=== PATIENT | female | born 1980 | race Native Hawaiian/Other Pacific Islander ===

== ENCOUNTER 2019-10-20 19:28 | Emergency (ER) | payer SELFPAY | END 2019-10-20 22:00 | disposition left against medical advice (07) | LOC: ED 19:28 | DX: R07.89 Other chest pain (principal); R07.81 Pleurodynia; Z53.21 Procedure and treatment not carried out due to patient leaving prior to being seen by health care provider ==

== ENCOUNTER 2019-10-29 17:54 | Emergency (ER) | payer MEDICAID ==
[2019-10-29] MEDS ORDERED: HYDROcodone/ACETAMINOPHEN 5-325 MG TAB PO ONE (20:29)
--- NOTE | 2019-10-29 20:33 | Emergency Department Report ---
Chief Complaint: Abdominal Pain Stated Complaint: BRITANY - HPI History of Present Illness: The pt is a 39 y/o F p/w a cc of Left CP. The pt has had constant sharp left CP radiating to the back since 10/20/2019. Pt admits to SOB but denies n/v or diaphoresis. Pt admits to an occ cough that is nonproductive. pt admits to pleurisy - Exam Vital Signs: Vital Signs 10/29/19 18:05 Temperature 97.3 F L Pulse Rate 81 Respiratory 24 Rate Blood Pressure 154/95 O2 Sat by Pulse 99 Oximetry MSE screening note: Focused history and physical exam performed. Due to findings the following was ordered: cbc, bmp, ck/ckmb/tro, d-dimer, ekg norco ED Disposition for MSE Condition: Stable Instructions: Abdominal Pain (ED)
[2019-10-29 21:08] LABS: Basophils # (Auto) 0.1 K/mm3 (0.0-0.1); Basophils % (Auto) 0.4 % (0.0-1.8); Eosinophils # (Auto) 0.5 K/mm3 (0.0-0.4); Eosinophils % (Auto) 3.7 % (0.0-4.3); Hematocrit 37.5 % (30.3-42.9); Hemoglobin 12.1 gm/dl (10.1-14.3); Lymphocytes # (Auto) 3.4 K/mm3 (1.2-5.4); Lymphocytes % (Auto) 25.2 % (13.4-35.0); Mean Corpuscular HGB Conc 32 % (30-34); Mean Corpuscular Volume 79 fl (79-97); Monocytes # (Auto) 0.8 K/mm3 (0.0-0.8); Platelet Count 442 K/mm3 (140-440); Red Blood Count 4.73 M/mm3 (3.65-5.03); Red Cell Distribution Width 16.3 % (13.2-15.2)
[2019-10-29 21:23] LABS: Creatine Kinase MB < 1.0 ng/mL (0.0-4.0)
[2019-10-29 21:30] LABS: BUN/Creatinine Ratio 25; Blood Urea Nitrogen 15 mg/dL (7-17); Calcium 9.3 mg/dL (8.4-10.2); Hemolysis Index 5
[2019-10-29 21:47] LABS: HCG Qualitative,Urine Negative (Negative)
--- NOTE | 2019-10-29 23:56 | Cat Scan Report ---
CTA CHEST WITH IV CONTRAST INDICATION: Left chest pain. Pleurisy. TECHNIQUE: Axial CT images were obtained through the chest after injection of 100 cc Omnipaque 350 IV contrast. 3 plane MIP reconstructions were produced. All CT scans at this location are performed using CT dose reduction for ALARA by means of automated exposure control. COMPARISON: None available. FINDINGS: PULMONARY ARTERIES: Well-opacified without distinct from emboli. AORTA AND ARTERIES: No acute abnormality. MEDIASTINUM: The thyroid gland is unremarkable. The trachea and main bronchi are patent and normal in caliber. No mass or lymphadenopathy. Normal heart size without a pericardial effusion. LUNGS: No suspicious consolidation, nodule or mass. No pneumothorax or pleural effusion. ADDITIONAL FINDINGS: None. UPPER ABDOMEN: No acute findings. BONES: No significant osseous abnormality. IMPRESSION: 1. No CT evidence for pulmonary embolism. 2. No acute abnormality of the chest. Signer Name: Brad Tohrpe MD Signed: 10/29/2019 11:52 PM Workstation Name: [id number]
--- NOTE | 2019-10-30 01:45 | Emergency Department Report ---
ED General Adult HPI - General Chief complaint: Abdominal Pain Stated complaint: BRITANY Source: patient Mode of arrival: Ambulatory Limitations: No Limitations - History of Present Illness Initial comments: Patient is a 39-year-old female with a history of morbid obesity who presents to the ED with complaint of acute onset persistent left-sided chest wall pain that radiates mid posterior thoracic area for the last 2 weeks. Patient states that the patient has been persistent and constant, sharp and amoxicillin and wanes. Patient also complains of mild shortness of breath but denies nausea and vomiting, abdominal pain, diaphoresis, fever, chills, cough, dizziness, syncope, palpitations, traumatic injury or heavy lifting. Patient was initially evaluated at another hospital for the same and was discharged home on steroids, naproxen and also given amlodipine 5 mg for hypertension. Patient states that the pain has been persistent despite taking the medications that were prescribed. MD Complaint: left sided chest wall pain -: Sudden, week(s) (2) Location: chest, back (mid back) Radiation: non-radiation Severity scale (0 -10): 10 Quality: aching, sharp Consistency: constant Improves with: none Worsens with: none Associated Symptoms: denies other symptoms, chest pain. denies: cough, diaphoresis, fever/chills, headaches, loss of appetite, nausea/vomiting, rash, shortness of breath, syncope, other Treatments Prior to Arrival: NSAID - Related Data Previous Rx's Medication Instructions Recorded Last Taken Type HYDROcodone/APAP 5-325 [Okarche 1 each PO Q6HR PRN #20 tablet 03/12/15 Unknown Rx 5/325] Ibuprofen [Motrin] 600 mg PO Q8H PRN #40 tablet 03/12/15 Unknown Rx Gabapentin 300 mg PO Q12H PRN #30 cap 10/30/19 Unknown Rx Ketorolac [Toradol] 10 mg PO Q8H PRN #20 tablet 10/30/19 Unknown Rx tiZANidine [Zanaflex 4mg TAB] 4 mg PO Q8H PRN #21 tablet 10/30/19 Unknown Rx traMADoL [Ultram] 50 mg PO Q6HR PRN #12 tablet 10/30/19 Unknown Rx Allergies Allergy/AdvReac Type Severity Reaction Status Date / Time No Known Allergies Allergy Verified 05/05/14 20:50 ED Review of Systems ROS: Stated complaint: BRITANY Other details as noted in HPI Constitutional: denies: chills, fever Eyes: denies: eye pain, eye discharge, vision change ENT: denies: ear pain, throat pain Respiratory: shortness of breath. denies: cough, wheezing Cardiovascular: chest pain (left-sided). denies: palpitations Endocrine: no symptoms reported Gastrointestinal: denies: abdominal pain, nausea, diarrhea Genitourinary: denies: urgency, dysuria, discharge Musculoskeletal: denies: back pain, joint swelling, arthralgia Skin: denies: rash, lesions Neurological: denies: headache, weakness, paresthesias Psychiatric: denies: anxiety, depression Hematological/Lymphatic: denies: easy bleeding, easy bruising ED Past Medical Hx - Past Medical History Previous Medical History?: Yes Hx Hypertension: No Hx CVA: No Hx Heart Attack/AMI: No Hx Congestive Heart Failure: No Hx Diabetes: No Hx Deep Vein Thrombosis: No Hx Pulmonary Embolism: No Hx GERD: No Hx Liver Disease: No Hx Renal Disease: No Hx Sickle Cell Disease: No Hx Arthritis: No Hx Headaches / Migraines: Yes Hx Seizures: No Hx Kidney Stones: No Hx Psychiatric Treatment: No Hx Asthma: No Hx COPD: No Hx Tuberculosis: No Hx Dementia: No Hx HIV: No Additional medical history: MORBID OBESITY - Surgical History Past Surgical History?: Yes Hx Coronary Stent: No Hx Open Heart Surgery: No Hx Pacemaker: No Hx Internal Defibrillator: No Hx Cholecystectomy: Yes Hx Appendectomy: Yes Hx Breast Surgery: No Additional Surgical History: tonsilectomy, c sections x 5 - Social History Smoking Status: Current Every Day Smoker Substance Use Type: None - Medications Home Medications: Home Medications Medication Instructions Recorded Confirmed Last Taken Type HYDROcodone/APAP 5-325 [Okarche 1 each PO Q6HR PRN #20 tablet 03/12/15 Unknown Rx 5/325] Ibuprofen [Motrin] 600 mg PO Q8H PRN #40 tablet 03/12/15 Unknown Rx Gabapentin 300 mg PO Q12H PRN #30 cap 10/30/19 Unknown Rx Ketorolac [Toradol] 10 mg PO Q8H PRN #20 tablet 10/30/19 Unknown Rx tiZANidine [Zanaflex 4mg TAB] 4 mg PO Q8H PRN #21 tablet 10/30/19 Unknown Rx traMADoL [Ultram] 50 mg PO Q6HR PRN #12 tablet 10/30/19 Unknown Rx ED Physical Exam - General Limitations: No Limitations General appearance: alert, in no apparent distress - Head Head exam: Present: atraumatic, normocephalic, normal inspection - Eye Eye exam: Present: normal appearance, PERRL, EOMI Pupils: Present: normal accommodation - ENT ENT exam: Present: normal exam, normal orophraynx, mucous membranes moist, TM's normal bilaterally, normal external ear exam - Neck Neck exam: Present: normal inspection, full ROM - Respiratory Respiratory exam: Present: normal lung sounds bilaterally, chest wall tenderness (palpable reproducible left sided chest wall tenderness). Absent: respiratory distress, rhonchi - Cardiovascular Cardiovascular Exam: Present: regular rate, normal rhythm, normal heart sounds. Absent: systolic murmur, diastolic murmur, rubs, gallop - GI/Abdominal GI/Abdominal exam: Present: soft, normal bowel sounds. Absent: tenderness, guarding, rebound, hyperactive bowel sounds, hypoactive bowel sounds, organomegaly - Extremities Exam Extremities exam: Present: normal inspection, full ROM, normal capillary refill - Back Exam Back exam: Present: normal inspection, full ROM. Absent: tenderness, CVA tenderness (R), muscle spasm, paraspinal tenderness, vertebral tenderness - Neurological Exam Neurological exam: Present: alert, oriented X3, CN II-XII intact, normal gait, reflexes normal - Psychiatric Psychiatric exam: Present: normal affect, normal mood - Skin Skin exam: Present: warm, dry, intact, normal color. Absent: rash ED Course Vital Signs 10/29/19 18:05 Temperature 97.3 F L Pulse Rate 81 Respiratory 24 Rate Blood Pressure 154/95 O2 Sat by Pulse 99 Oximetry ED Medical Decision Making - Lab Data Result diagrams: 10/29/19 20:48 10/29/19 20:48 - EKG Data EKG shows normal: sinus rhythm Rate: normal - EKG Data Interpretation: normal EKG 10/30/19 01:55 EKG shows normal sinus rhythm with a ventricular rate of [address] or T- wave abnormalities. - Radiology Data Radiology results: report reviewed, image reviewed Findings [facility] [address] [place] [address] Cat Scan Report Signed Patient: MEHDI HUFFMAN MR#: [id number] : 1980 Acct:[id number] Age/Sex: 39 / F ADM Date: 10/29/19 Loc: ED Attending Dr: Ordering Physician: MANUEL VELÁSQUEZ MD Date of Service: 10/29/19 Procedure(s): CT angio chest Accession Number(s): [id number] cc: MANUEL VELÁSQUEZ MD CTA CHEST WITH IV CONTRAST INDICATION: Left chest pain. Pleurisy. TECHNIQUE: Axial CT images were obtained through the chest after injection of 100 cc Omnipaque 350 IV contrast. 3 plane MIP reconstructions were produced. All CT scans at this location are performed using CT dose reduction for ALARA by means of automated exposure control. COMPARISON: None available. FINDINGS: PULMONARY ARTERIES: Well-opacified without distinct from emboli. AORTA AND ARTERIES: No acute abnormality. MEDIASTINUM: The thyroid gland is unremarkable. The trachea and main bronchi are patent and normal in caliber. No mass or lymphadenopathy. Normal heart size without a pericardial effusion. LUNGS: No suspicious consolidation, nodule or mass. No pneumothorax or pleural effusion. ADDITIONAL FINDINGS: None. UPPER ABDOMEN: No acute findings. BONES: No significant osseous abnormality. IMPRESSION: 1. No CT evidence for pulmonary embolism. 2. No acute abnormality of the chest. Signer Name: Brad Thorpe MD Signed: 10/29/2019 11:52 PM Workstation Name: [id number] Transcribed By: [place] Dictated By: Brad Thorpe MD Electronically Authenticated By: Brad Thorpe MD Signed Date/Time: 10/29/192351 DD/ 49 - Medical Decision Making This is a 39-year-old female who presented to the ED with complaint of persistent severe left-sided chest wall pain that radiates to the mid posterior thoracic area for the last 2 weeks despite taking pain medications previously prescribed from another hospital. In the ED, patient is alert and oriented 3 and is not in distress. EKG shows normal sinus rhythm with ventricular rate of [address] or T-wave abnormalities. Lab test results were reviewed and are all nonactionable except acute leukocytosis of 13,600, and elevated d-dimer 270.22. Chest CTA shows no evidence of pulmonary embolism or pneumonitis. Patient was treated for pain in the ED and on reevaluation, patient's pain is well controlled with medications. Patient's symptoms are likely due to musculoskeletal strain or inflammation. Patient was discharged home on pain medications, muscle relaxants and was advised to follow-up with her primary care physician in 5-7 days for reevaluation or return to the ED immediately if symptoms get worse. - Differential Diagnosis CAD; Pneumonia; Muscle strain; Costochondritis; PE Critical care attestation.: If time is entered above; I have spent that time in minutes in the direct care of this critically ill patient, excluding procedure time. ED Disposition Clinical Impression: Acute costochondritis, Muscle strain of anterior chest wall Disposition: TO HOME OR SELFCARE Is pt being admited?: No Does the pt Need Aspirin: No Condition: Stable Instructions: Muscle Strain (ED), Costochondritis (ED) Additional Instructions: The symptoms are likely musculoskeletal as all the lab test results for your heart are normal. The imaging tests results are also normal with no evidence of pulmonary embolism. Therefore take medications with food, drink plenty of fluids and follow-up with her primary care physician in 7-10 days for reevaluation. Return to the ED immediately if symptoms get worse. Prescriptions: Gabapentin 300 mg PO Q12H PRN #30 cap PRN Reason: Pain , Severe (7-10) Ketorolac [Toradol] 10 mg PO Q8H PRN #20 tablet PRN Reason: Pain traMADoL [Ultram] 50 mg PO Q6HR PRN #12 tablet PRN Reason: Pain tiZANidine [Zanaflex 4mg TAB] 4 mg PO Q8H PRN #21 tablet PRN Reason: Muscle Spasm Referrals: [facility] [Outside] - 7-10 days Time of Disposition: 01:58 Print Language: ISRAELI
[2019-10-30 02:36] VITALS: BP 148/94
== END 2019-10-30 02:37 | disposition home or self-care (01) ==
LOC: ED 17:54
DX: S29.011A Strain of muscle and tendon of front wall of thorax, initial encounter (principal); M94.0 Chondrocostal junction syndrome [Tietze]; G43.909 Migraine, unspecified, not intractable, without status migrainosus; Z90.49 Acquired absence of other specified parts of digestive tract; Z98.890 Other specified postprocedural states; F17.200 Nicotine dependence, unspecified, uncomplicated; Z79.1 Long term (current) use of non-steroidal anti-inflammatories (NSAID); Z79.899 Other long term (current) drug therapy; X58.XXXA Exposure to other specified factors, initial encounter; Y93.89 Activity, other specified; Y92.89 Other specified places as the place of occurrence of the external cause; Y99.8 Other external cause status
CPT/HCPCS: 36415; 71275; 80048; 81025; 82550; 82553; 84484; 85025; 85379; 93005; 93010; 99284; Q9967